=== PATIENT | female | born 1950 | race Caucasian/White ===

== ENCOUNTER → 2017-06-08 13:47 | Outpatient (CLI) | payer MEDICARE, OTHER, SELFPAY ==
[2017-06-16 11:55] LABS: HPV APTIMA, High Risk Negative (Negative)
[2017-06-16 12:08] LABS: HPV Reflexed? YES, CHARGE PATIENT
== END ==
PROVIDERS: Visit Provider Obstetrics & Gynecology
DX: Z12.4 Encounter for screening for malignant neoplasm of cervix (principal)
CPT/HCPCS: 87624; 88175; G0145

== ENCOUNTER 2017-06-26 07:15 | Day surgery (SDC) | payer MEDICARE, OTHER, SELFPAY ==
[2017-06-21 15:57] LABS: Hematocrit 36.1 % (37-47); Hemoglobin 11.8 g/dl (12.0-15.0); Mean Corp Hgb Conc 32.7 g/gl (32-36); Mean Corpuscular Hgb 29.6 pg (27.0-32.0); Mean Corpuscular Volume 90.5 fL (81-99); Mean Platelet Vol. 11.1 fl (6.2-12.0); Platelet Count 259 K/mm3 (150-450); RBC Distribution Width CV 13.5 % (11.6-14.6); RBC Distribution Width SD 44.9 fl (35.1-43.9); Red Blood Count 3.99 M/mm3 (4.2-5.4)
[2017-06-21 15:58] LABS: Scan Indicated on CBC? Y/N NO
[2017-06-21 16:06] LABS: International Normalized Ratio 1.1; Prothrombin Time (Protime)PT. 13.9 SECONDS (11.7-14.9)
[2017-06-21 16:07] LABS: Partial Thromboplast Time 30.3 Seconds (24.1-36.2)
[2017-06-21 16:46] LABS: AST(SGOT) 23 U/L (15-37); Alanine Aminotransfer ALT/SGPT 34 U/L (13-56); Albumin, Serum 3.5 g/dL (3.2-5.0); Alkaline Phosphatase 37 U/L (45-117); Anion Gap 7 (5-15); BUN 18 mg/dL (7-18); BUN/Creat Ratio 34.5 RATIO (10-20); Chloride 103 mmol/L (98-107); Creatinine, Serum 0.52 mg/dL (0.55-1.02); EST Glomerular Filtration Rate 125 mL/min (>60); Est Glom Filt Rate - Afr Amer 151 mL/min (>60); Globulin 3.5 g/dL (2.2-4.2); Glucose 92 mg/dL (74-106); Potassium 3.1 mmol/L (3.5-5.1); Sodium Level 142 mmol/L (136-145)
--- NOTE | 2017-06-25 18:13 | PCM.HP.BLA ---
History and Physical Date of Admission: 06/26/17 Surgical History and Physical France Parker, a 67 year old female 2 0 0 0 2, presents for D and C and hysteroscopy on June 26, 2017 at 9:20. 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 [place] claims it started suddenly and has been present one day. It occurs occasionally. It is located in the vaginal. Associated signs and symptoms are Type II DM. Additional comments are: U/S shows likely EM polyp and two small intramural fibroids. MEDICATIONS HISTORY: Patient is also takin. hydrochlorothiazide 25 mg tablet, One pill by mouth twice a day 2. levothyroxine 112 mcg tablet, One pill by mouth once a day 3. potassium chloride ER 10 mEq capsule,extended release, One pill by mouth twice a day ALLERGIES: NKDA Infections - Chicken pox and Measles Illnesses - hypertension, Hypothyroidism and DM II diet controlled for now Accidents - None Hospitalizations - see surgery Review of Systems: GENERAL - Denies fever, or chills SKIN - Denies skin changes EYES - Denies visual changes EARS - Denies difficulty hearing NOSE - Denies nasal congestion or bleeding MOUTH - Denies sore throat or difficulty swallowing NECK - Denies pain or swelling RESPIRATORY - Denies shortness of breath or wheezing CARDIOVASCULAR - Denies palpitations or chest pain GASTROINTESTINAL - Denies nausea, vomiting, diarrhea, constipation GENITOURINARY - Denies dysuria, frequency of urination, incontinence of urine MUSCULOSKELETAL - Denies joint or muscle pain NEUROLOGICAL - Denies localized numbness or weakness PSYCHIATRIC - Denies depression or anxiety ENDOCRINE - Denies heat or cold intolerance, weight loss or gain HEMATO-IMMUNOLOGIC - Denies excesive bleeding with cuts SOCIAL HISTORY: Alcohol Use - None Smoking - Never Diet - no special diet Lifestyle - moderate stress lifestyle and single Exercise - minimal Seat Belt Use - always Employer - [employer] Illicit Drug Use - None Sexual Activity - Spouse-Sig Other Name - Sourav Spouse-Sig Other Occupation - Disabled Control - postmenopausal FAMILY HISTORY: Father: DM II and Prostate cancer. MENSTRUAL HISTORY: LMP Known?- Postmenopausal, LMP - 05/10/03 PAST PREGNANCIES: Total Pregnancies - 2; Full Term Pregnancies - 2; Premature - 0; Abortions, Induced - 0; Abortions, Spontaneous - 0; Ectopics - 0; Multiple Births - 0; Living Children - 2 SURGICAL HISTORY: 1. 09/02/1980 ; Dr. Ervin - 2. 01/22/1982 ; Dr. Ervin - 3. Exploratory with Removal of Gallbladder, Appendice,RSO ; Dr. Diaz - 4. Total (L) Knee Replacement ; - 5. Hernia Repair ; - PHYSICAL EXAM BP- 146/84 Sitting, Right arm, large cuff Weight- 297.45736 lbs Height- 64 inch BMI:51.09 CONSTITUTIONAL - NAD, well nourished, and well developed SKIN - No rash, lesions, or ulcers HEENT - Normocephalic, PERRLA, EOMI NECK - no nodes, no nuchal rigidity and thyroid normal size and texture LYMPH NODES - Palpation of lymph nodes in neck and groins within normal limits LUNGS - CTA x2 without wheezes, crackles or rales CARDIAC - Regular rate and rhythm without rubs, murmurs, or gallops ABDOMEN - Without hepatosplenomegaly, distention, masses, rebound, or guarding; normal bowel sounds, no hernias EXTREMITIES - No edema or calf tenderness NEUROLOGICAL - Cranial nerves II-XII grossly intact PSYCHIATRIC - A and O to time, place, person, mood and affect External Genitial Vagina - non-tender without lesions Urethra/Urethral Meatus - non-tender Bladder - non-tender Vagina - vaginal rosa are pink and moist without loss of rugae and no evidence of atropy Cervix - without cervical motion tenderness and has normal size and features without evident lesions Uterus - multiparous size 6 cm & wt 75-125 g Adnexa - clear without massess or tenderness ASSESSMENT/PLAN: 1. Postmenopausal Bleeding Discussed need to find cause of bleeding despite being only for 1 day. U/S shows possible poyp. Will schedule D and C and H/S. Discussed RBAs and all questions answered.
[2017-06-26] VITALS (7 sets, daily range): BP systolic 107–153; BP diastolic 66–81; PULSE 69–80; RESP 16; TEMP 36.6–36.9; O2SAT 93–98; BMI 48.9
[2017-06-26 07:44] LABS: Potassium 3.2 mmol/L (3.5-5.1)
[2017-06-26 08:06] LABS: Bedside Glucose 148 mg/dL (70-110)
--- NOTE | 2017-06-26 09:20 | CER_PTH ---
PATIENT: TR HICKS [place] [facility] [place][id number] AGE/SX: 67/F ROOM: RE06/26/[address]: Dr. Shaquille Babcock MD : [id number] BED: DIS: 06/26/2017 SPEC #: [id number] RECD: 06/26/17 10:29 STATUS: SARAH GENE #: [id number] NUBIA: 06/26/17 09:[address]: Shaquille Babcock DEPT: SURGICAL PATHOLOGY RECD BY: Shahzad Pascual ENTERED: 06/26/17 12:41 SP TYPE: CERV OTHR DR: Dr. Yovany Wallace MD Tissues: A - Uterine cervix, NOS B - Endometrium, NOS Procedures: Surgery Specimen Level IV HEADER OPERATION: Hysteroscopy, dilation and curettage PRE-OP DIAGNOSIS: Post menopausal bleeding TISSUE SUBMITTED: A. Endocervical curettings, B. Endometrial curettings MICROSCOPIC DIAGNOSIS A. Endocervical curettings: Fragments of benign ecto- and endocervical mucosa with chronic inflammation. A minute fragment of atypical glandular epithelium. See comment. B. 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 SJ:hannah 06/27/17 COMMENT A. The atypical glandular epithelium most likely represents endometrial tissue. Case has been reviewed in consultation with Dr. Lomeli who concurs with the above diagnosis. IDC:AM MICROSCOPIC DESCRIPTION Slides are reviewed. GROSS DESCRIPTION A - Received in fixative is one container labeled with the patient's name and designated endocervical curettings. The specimen consists of multiple fragments of hemorrhagic mucoid tissue that in aggregate measure 1.5 x 1.5 x 0.2 cm. The specimen is totally submitted in one cassette. B - Received in fixative is one container labeled with the patient's name and designated endometrial curettings. The specimen consists of multiple fragments of hemorrhagic soft tissue mixed with blood clot that in aggregate measure 5 x 3 x 0.3 cm. The entire specimen is submitted in two cassettes. / SJ:hannah 06/26/17 TC:0 CPT: 62064 x2
--- NOTE | 2017-06-26 09:29 | PCM.OP.BLANK ---
Operative Report Date of Procedure: 06/26/17 Surgeon: Shaquille Babcock MD, FACOG Anesthesia: Denny Patel CRNA Type of Anesthesia: MAC Pre-Op Diagnosis: Postmenopausal Bleeding And Endometrial Polyp Postoperative diagnosis: Postmenopausal Bleeding And Endometrial Polyp Procedure: Diagnostic Hysteroscopy, Fractional Dilation and Curettage Findings: 8 cm endometrial cavity with approximately a 1 cm endometrial polyp. Atrophic endometrium otherwise. Severely anteflexed uterus with cervix high in the vagina making vaginal hysterectomy difficult. Robotic hysterectomy should be feasible if needed. Indications: This is a 67 year old patient who has the above diagnosis. The patient has been counseled regarding the risk and indications of this procedure including the possibility of bleeding, infection, and injury to surrounding structures such as bowel bladder. All questions were answered to reconsider the patient well-informed. Procedure: The patient was taken to the operating room where after induction of general anesthesia, she was placed in the dorsolithotomy position and prepped and draped in the usual sterile fashion. The bladder was drained of approximately 50 cc of clear yellow urine with a catheter. Anterior cervix was grasped with the tenaculum and dilated to about 4-5 mm. A 3 mm hysteroscope was placed in the uterus of the above findings were noted. Cervix was dilated to about 7-8 mm and uterus was gently curetted removing all contents. Hysteroscope was reinserted and all material was noted to be removed. In the course of the procedure approximately 1500 cc of glycine distending media was used and virtually all of this was recovered. Patient tolerated procedure well was taken to recovery room in satisfactory condition sponge instrument and needle counts were all reportedly correct. Estimated blood loss for the case was minimal. Specimens to pathology was endometrial and endocervical curettings.
--- NOTE | 2017-06-26 09:35 | PCM.DC.D&C ---
Discharge Diet: No Restrictions Discharge Activity: Return to Normal Activity, May Shower, May Take a Tub Bath May resume sexual activity in: 2 weeks Call your doctor if you observe: Fever of 101 or Higher, Inability to urinate, Inability to have a bowel movement, Using more than one pad per hour Allergies/Adverse Reactions: Allergies No Known Allergies Allergy (Verified 06/20/17 11:11) Medications to take at Discharge Aspirin [Aspirin EC] 81 mg PO QHS 06/20/17 Hydrochlorothiazide [Hctz] 25 mg PO BID 06/20/17 Levothyroxine [Synthroid] 112 mcg PO DAILY 06/20/17 Potassium Chloride [K-Dur] 10 meq PO BID 06/20/17 Potassium Chloride [Klor-Con M20] 20 meq PO BID 06/26/17 Primary Care Physician: Yovany Wallace MD [Primary Care Provider] - Please Follow Up With: Shaquille Babcock MD When: 2-3 weeks
[2017-06-26 11:01] LABS: Bedside Glucose 126 mg/dL (70-110)
[2017-06-26] MEDS: HYDROcodone Bitartrate/Apap 5/325 Tablet PO (11:24)
== END 2017-06-26 12:21 | disposition home or self-care (01) ==
LOC: SDC 07:16 → AC 07:17
PROVIDERS: Anesthesiology; Family Provider Family Medicine; PCP Family Medicine; Visit Provider Obstetrics & Gynecology
PROC: 0UDB8ZZ Extraction of Endometrium, Via Natural or Artificial Opening Endoscopic (ICD-10-PCS; CPT 58558; principal; 2017-06-26 09:10)
DX: C54.1 Malignant neoplasm of endometrium (principal); N95.0 Postmenopausal bleeding; I10 Essential (primary) hypertension; E11.9 Type 2 diabetes mellitus without complications; E03.9 Hypothyroidism, unspecified; Z86.010 Personal history of colon polyps; Z79.82 Long term (current) use of aspirin; Z79.899 Other long term (current) drug therapy
CPT/HCPCS: 58558; 36415; 80053; 82962; 84132; 85027; 85610; 85730; 86850; 86900; 88305; J7120